=== PATIENT | female | born 2000 | race Caucasian/White ===

== ENCOUNTER 2021-02-09 15:36 | Emergency (ER) | payer OTHER ==
[~2021-02-09 15:36] MED LIST: IBUPROFEN600 MG PO
[2021-02-09 16:20] LABS: HEMOGLOBIN 13.6 gm/dl (12.3-15.3); RED BLOOD COUNT 4.82 M/UL (4.00-5.10); WHITE BLOOD COUNT 7.5 K/UL (4.5-11.0)
[2021-02-09 16:36] LABS: BUN/CREATININE RATIO 9 (0-10)
== END 2021-02-09 20:04 | disposition home or self-care (01) ==
LOC: ER1 15:36
PROVIDERS: Emergency Medicine
DX: R10.84 Generalized abdominal pain (principal); R11.2 Nausea with vomiting, unspecified
CPT/HCPCS: 80053; 81001; 83690; 85025; 99284

== ENCOUNTER → 2022-06-28 | Outpatient (CLI) | payer OTHER | LOC: KOH-I 15:30 | DX: M79.661 Pain in right lower leg (principal); M79.89 Other specified soft tissue disorders | CPT/HCPCS: 93971 ==